=== PATIENT | male | born 1960 | race American Indian/Alaskan Native ===

== ENCOUNTER 2016-08-22 07:05 | Day surgery (SDC) | payer MEDICAID ==
[2016-08-22] MEDS ORDERED: DIPRIVAN 10 MG/ML IV ONE ×4 (07:36→10:47)
--- NOTE | 2016-08-22 08:33 | Discharge Summary ---
Providers - Providers Date of discharge: 08/22/16 Attending physician: DEANN CINTRON Hospitalization Reason for admission: outpatient EGD Condition: Stable Procedures: EGD Disposition: DISCHARGED TO HOME OR SELFCARE Core Measure Documentation - Palliative Care Palliative Care/ Comfort Measures: Not Applicable - Core Measures Any of the following diagnoses?: none Exam - Physical Exam Narrative exam: unchanged from preop - Constitutional Vitals: Temp Pulse Resp BP Pulse Ox 98.1 F 65 13 117/76 95 08/22/16 08:27 08/22/16 08:27 08/22/16 08:27 08/22/16 08:27 08/22/16 08:27 Plan Activity: advance as tolerated Diet: low carbohydrate
[2016-08-22] MEDS ORDERED: NACL 0.9% 1000 ML 1,000 ML IV SCH (09:00)
--- NOTE | 2016-08-22 09:29 | Anesthesia Consultation ---
Anesthesia Consult and Med Hx Date of service: 08/22/16 - Airway Anesthetic Teeth Evaluation: Good ROM Head & Neck: Adequate Mental/Hyoid Distance: Adequate Mallampati Class: Class III Intubation Access Assessment: Possibly Difficult - Pulmonary Exam CTA: Yes - Cardiac Exam Cardiac Exam: RRR - Pre-Operative Health Status ASA Pre-Surgery Classification: ASA3 Proposed Anesthetic Plan: MAC - Pulmonary Hx Smoking: Yes Hx Sleep Apnea: Yes - Cardiovascular System Hx Hypertension: Yes (H/O CHF) Hx Cardia Arrhythmia: Yes (AFIB) - Central Nervous System Hx Seizures: No CVA: No - Endocrine Hx Renal Disease: Yes (CKD) Hx Cirrhosis: No Hx Insulin Dependent Diabetes: Yes Hx Thyroid Disease: No - Other Systems Hx Cancer: No Hx Obesity: Yes (MORBID, BMI > 40)
--- NOTE | 2016-08-22 09:29 | Anesthesia Day of Surgery ---
Anesthesia Day of Surgery - Day of Surgery Patient Examined: Yes Patient H&P Reviewed: Yes Patient is NPO: Yes Beta Blockers: Yes
[2016-08-22] MEDS ORDERED: WATER FOR IRRIG STERILE IR ONE (11:07)
--- NOTE | 2016-08-22 11:10 | Operative Report ---
Operative Report Operative Report: OPERATIVE REPORT - EGD DATE 08/22/2016 SURGERY: Upper endoscopy. SURGEON: Loco Bae M.D. LEAD RAMP AGENT: Chente Begum MD PRE OP DX: Dyspepsia POST OP DX: 1. Small Hiatal hernia 2. Mild patchy duodenitis TYPE OF ANESTHESIA: MAC. ESTIMATED BLOOD LOSS: None. COMPLICATIONS: None. SPECIMENS REMOVED: None. FINDINGS: 1. Small hiatal hernia. 2. Mild duodenitis 3. Otherwise, normal esophagus, stomach and first portion of duodenum. INDICATIONS:INDICATION FOR PROCEDURE: Patient is a 56-year-old male with a long history of morbid obesity. He is planned to have a weight loss procedure and is here for preoperative planning EGD. PROCEDURE DETAILS: After consent was reviewed, patient was taken back to the operating room where patient was placed in the left lateral decubitus position and a bite block was placed in the mouth. After a time-out was called, MAC anesthesia was initiated. I then passed the endoscope into his oropharynx, into his esophagus, visualized the entire esophagus, which was all within normal limits. I then visualized the stomach and the first portion of the duodenum. there was mild patchy duodenitis. I then retroflexed the scope in the stomach and visualized the hiatus and I could see a small hiatal hernia. I then desufflated the stomach and removed the endoscope. Patient tolerated procedure well and was transferred to recovery room in good and stable condition.
[2016-08-22 11:38] VITALS: BP 137/82
--- NOTE | 2016-08-22 14:33 | Post Anesthesia Evaluation ---
- Post Anesthesia Evaluation Patient Participated: Yes Airway Patent: Yes Stable Respiratory Function: Yes Nausea/Vomiting: No Temp > 96.8F: Yes Pain Manageable: Yes Adequeate Hydration: Yes Anesthesia Complications: No Block Receding Appropriately: Not Applicable Patient on Ventilator: No
== END 2016-08-22 07:06 | disposition home or self-care (01) ==
LOC: GIO 07:05
PROVIDERS: ATTEND Specialist
DX: K29.80 Duodenitis without bleeding (principal); K44.9 Diaphragmatic hernia without obstruction or gangrene; E11.22 Type 2 diabetes mellitus with diabetic chronic kidney disease; I13.2 Hypertensive heart and chronic kidney disease with heart failure and with stage 5 chronic kidney disease, or end stage renal disease; I50.9 Heart failure, unspecified; N18.9 Chronic kidney disease, unspecified; G47.33 Obstructive sleep apnea (adult) (pediatric); I48.91 Unspecified atrial fibrillation; E66.01 Morbid (severe) obesity due to excess calories; Z68.43 Body mass index [BMI] 50.0-59.9, adult; F32.9 Major depressive disorder, single episode, unspecified; Z87.891 Personal history of nicotine dependence
CPT/HCPCS: 43235; 82962; J2704